=== PATIENT | female | born 1980 | race Two or more races ===

== ENCOUNTER 2021-06-14 15:44 | Emergency (ER) | payer OTHER ==
[~2021-06-14] VITALS: Ht 157.5 cm; Wt 67.6 kg
[2021-06-14] MEDS ORDERED: MACRODANTIN100 M1 PO (22:54)
[2021-06-14] MEDS ORDERED: DOLOGEN CAPLET1 EACH PO (22:54)
== END 2021-06-15 00:35 | disposition home or self-care (01) ==
LOC: ER 15:44
DX: N39.0 Urinary tract infection, site not specified (principal); R10.31 Right lower quadrant pain

== ENCOUNTER 2021-06-15 15:10 | Emergency (ER) | payer OTHER ==
[~2021-06-15] VITALS: Ht 157.5 cm; Wt 67.6 kg
[~2021-06-15 15:10] MED LIST: DOLOGEN CAPLET1 EACH PO; MACRODANTIN100 M1 PO
== END 2021-06-15 20:51 | disposition home or self-care (01) ==
LOC: ER 15:10
DX: N20.0 Calculus of kidney (principal); R10.31 Right lower quadrant pain

== ENCOUNTER 2021-06-18 12:12 | Outpatient (CLI) | payer OTHER | END 2021-06-18 12:28 | disposition home or self-care (01) | LOC: RAD 12:12 | PROVIDERS: ATTEND Urology | DX: N20.0 Calculus of kidney (principal) ==

== ENCOUNTER 2021-06-25 07:44 | Outpatient (CLI) | payer OTHER | END 2021-06-25 07:54 | disposition home or self-care (01) | LOC: NUCLEAR 07:44 | PROVIDERS: ATTEND Urology | DX: N20.0 Calculus of kidney (principal); N39.0 Urinary tract infection, site not specified | CPT/HCPCS: 78707; A4641; J1940 ==

== ENCOUNTER 2021-07-03 04:00 | Emergency (ER) | payer OTHER ==
[~2021-07-03] VITALS: Ht 157.5 cm; Wt 63.5 kg
[2021-07-03] MEDS ORDERED: PERCOCET 5-3251 EACH PO (13:15)
== END 2021-07-03 13:50 ==
LOC: ER 04:00
DX: N20.0 Calculus of kidney (principal); R10.9 Unspecified abdominal pain; N39.0 Urinary tract infection, site not specified; R10.2 Pelvic and perineal pain; Z88.8 Allergy status to other drugs, medicaments and biological substances

== ENCOUNTER 2021-07-14 09:50 | Inpatient (IN) | payer OTHER ==
[~2021-07-14] VITALS: Ht 167.6 cm; Wt 74.8 kg
[~2021-07-14 09:50] MED LIST changes: +PERCOCET 5-3251 EACH PO
== END 2021-07-16 12:36 | disposition home or self-care (01) | DRG 694 ==
LOC: CIR.AMB 09:50 → O/R 12:00 → SURH 07-15 12:58
PROVIDERS: ADMIT Urology; ATTEND Urology
PROC: BT1DZZZ Fluoroscopy of Right Kidney, Ureter and Bladder (ICD-10-PCS; 2021-07-14)
PROC: 0TC08ZZ Extirpation of Matter from Right Kidney, Via Natural or Artificial Opening Endoscopic (ICD-10-PCS; 2021-07-14)
PROC: 0TC08ZZ Extirpation of Matter from Right Kidney, Via Natural or Artificial Opening Endoscopic (ICD-10-PCS; principal; 2021-07-14 10:45)
DX: N20.0 Calculus of kidney (principal); Z20.822 Contact with and (suspected) exposure to COVID-19

== ENCOUNTER 2021-07-20 12:39 | Outpatient (CLI) | payer OTHER | END 2021-07-20 12:54 | disposition home or self-care (01) | LOC: RAD 12:39 | PROVIDERS: ATTEND Urology | DX: N20.2 Calculus of kidney with calculus of ureter (principal) ==

== ENCOUNTER 2021-08-30 12:40 | Outpatient (CLI) | payer OTHER | END 2021-08-30 13:02 | disposition home or self-care (01) | LOC: MAMO-SONO 12:40 | PROVIDERS: ATTEND Specialist | DX: N63.0 Unspecified lump in unspecified breast (principal); N64.4 Mastodynia; R10.2 Pelvic and perineal pain; R10.30 Lower abdominal pain, unspecified ==

== ENCOUNTER 2021-09-01 11:23 | Outpatient (CLI) | payer OTHER | END 2021-09-01 12:39 | disposition home or self-care (01) | LOC: LAB 11:23 | PROVIDERS: ATTEND Urology | DX: N30.10 Interstitial cystitis (chronic) without hematuria (principal) ==

== ENCOUNTER 2021-11-12 10:34 | Outpatient (CLI) | payer OTHER | END 2021-11-12 10:49 | disposition home or self-care (01) | LOC: TOM 10:34 | PROVIDERS: ATTEND Urology | DX: N20.0 Calculus of kidney (principal); N39.0 Urinary tract infection, site not specified ==

== ENCOUNTER 2021-11-12 12:27 | Outpatient (CLI) | payer OTHER | END 2021-11-12 12:28 | disposition home or self-care (01) | LOC: LAB 12:27 | PROVIDERS: ATTEND Urology | DX: N30.00 Acute cystitis without hematuria (principal); N20.0 Calculus of kidney ==

== ENCOUNTER → 2021-11-16 11:56 | Outpatient (CLI) | payer OTHER | END | disposition home or self-care (01) | LOC: LAB 11:56 | PROVIDERS: ATTEND Urology | DX: N20.0 Calculus of kidney (principal) ==

== ENCOUNTER 2021-11-25 09:54 | Outpatient (CLI) | payer OTHER | END 2021-11-25 10:11 | disposition home or self-care (01) | LOC: SONOGRAMA 09:54 | PROVIDERS: ATTEND Obstetrics & Gynecology | DX: N90.89 Other specified noninflammatory disorders of vulva and perineum (principal) ==

== ENCOUNTER 2022-07-05 10:05 | Outpatient (CLI) | payer OTHER | END 2022-07-05 10:08 | disposition home or self-care (01) | LOC: TOM 10:05 | PROVIDERS: ATTEND Urology | DX: N20.0 Calculus of kidney (principal); N39.0 Urinary tract infection, site not specified ==

== ENCOUNTER 2022-08-25 13:13 | Outpatient (CLI) | payer OTHER | END 2022-08-25 13:14 | disposition home or self-care (01) | LOC: LAB 13:13 | PROVIDERS: ATTEND Urology | DX: N30.00 Acute cystitis without hematuria (principal) ==